=== PATIENT | female | born 1960 | race Caucasian/White ===

== ENCOUNTER 2019-03-05 18:32 | Emergency (ER) | payer OTHER ==
[~2019-03-05] VITALS: Ht 162.6 cm; Wt 104.3 kg
[2019-03-05] MEDS ORDERED: LEVEMIR SUBQ (20:22)
[2019-03-05] MEDS ORDERED: TYLENOL325 MG PO (20:22)
[2019-03-05] MEDS ORDERED: NOVOLOG100 UNIT/1 SUBQ ×2 (20:22)
[2019-03-05] MEDS ORDERED: PROTONIX 20 MG20 M1 PO (20:59)
[2019-03-05] MEDS ORDERED: NEURONTIN600 MG PO (20:59)
[2019-03-05] MEDS ORDERED: LIPITOR40 MG PO (20:59)
[2019-03-05] MEDS ORDERED: ASPIR 8181 MG PO (21:00)
[2019-03-05] MEDS ORDERED: LABETALOL HCL100 MG PO (21:00)
[2019-03-05 22:16] VITALS: BP 144/75
[2019-03-05] MEDS ORDERED: NORCO 5-325 TA1 EAC1 PO (22:51)
== END 2019-03-05 23:07 | disposition home or self-care (01) ==
LOC: ER 18:32
DX: S92.352A Displaced fracture of fifth metatarsal bone, left foot, initial encounter for closed fracture (principal); I10 Essential (primary) hypertension; E11.9 Type 2 diabetes mellitus without complications; Z91.018 Allergy to other foods; W18.39XA Other fall on same level, initial encounter; Y93.89 Activity, other specified; Y92.89 Other specified places as the place of occurrence of the external cause; Y99.8 Other external cause status